=== PATIENT | female | born 1960 | race African-American/Black ===

== ENCOUNTER 2018-02-11 20:29 | Emergency (ER) | payer MEDICAID ==
[~2018-02-11] VITALS: Ht 172.7 cm; Wt 130.9 kg
[~2018-02-11 20:29] MED LIST: AMLO10TA4 PO; ASPI-518 PO; ATOR20TA PO; LORA-249 PO; LOSA50TA3 PO; MECL-109 PO; MECL-115 PO
[2018-02-11 22:45] VITALS: BP 157/77
[2018-02-11] MEDS ORDERED: IBUPROFEN 600MG TABLET PO ONE (22:45)
[2018-02-11 23:55] LABS: CLARITY URINE CLEAR (CLEAR); COLOR URINE YELLOW (YELLOW); KETONES URINE NEGATIVE (NEGATIVE); LEUKOCYTE ESTERASE URINE NEGATIVE (NEGATIVE); NITRITE URINE NEGATIVE (NEGATIVE); OCCULT BLOOD URINE 1+ (NEGATIVE); PROTEIN URINE NEGATIVE (NEGATIVE); SPECIFIC GRAVITY URINE 1.018 (1.005-1.030); UROBILINOGEN URINE 0.2 E.U./dL (0.2-1.0)
== END 2018-02-12 01:07 | disposition left against medical advice (07) ==
LOC: ER 02-12 00:52
DX: R10.2 Pelvic and perineal pain (principal); I10 Essential (primary) hypertension; Z88.0 Allergy status to penicillin; Z88.5 Allergy status to narcotic agent
CPT/HCPCS: 81003; 99283